=== PATIENT | female | born 1955 | race Two or more races ===

== ENCOUNTER 2023-12-04 12:04 | Emergency (ER) | payer OTHER ==
[~2023-12-04] VITALS: Ht 162.6 cm; Wt 65.3 kg
[2023-12-04] MEDS ORDERED: MEMANTINE HCL10 MG PO (12:25)
[2023-12-04] MEDS ORDERED: MAXIMUM D3325 MCG PO (12:26)
[2023-12-04] MEDS ORDERED: OMEPRAZOLE20 MG PO (12:26)
[2023-12-04] MEDS ORDERED: ROSUVASTATIN CA20 MG PO (12:26)
[2023-12-04] MEDS ORDERED: CETIRIZINE HCL10 MG PO (12:26)
[2023-12-04] MEDS ORDERED: LEVOTHYROXINE50 MCG PO (12:26)
[2023-12-04] MEDS ORDERED: ALENDRONATE SOD70 MG PO (12:26)
[2023-12-04] MEDS ORDERED: KETOROLAC TROMETHAMINE 30 MG VIAL IV ONE (12:30)
[2023-12-04 13:02] LABS: HEMATOCRIT 37.9 % (36.0-45.00); HEMOGLOBIN 12.7 g/dL (12.0-15.00); MEAN CELL VOLUME 86.3 fL (80.00-100.00); MEAN CORPUSCULAR HGB CONC 33.6 g/dl (32.0-36.0); PLATELET COUNT 265 K/uL (150-450); RED BLOOD COUNT 4.39 M/uL (4.00-6.00); RED CELL DISTRIBUTION WIDTH 14.3 % (11.5-14.5)
[2023-12-04 13:12] LABS: ERYTHROCYTE SEDIMENTATION RATE 24 mm/hr
[2023-12-04 13:38] LABS: CALCIUM 9.5 mg/dL (8.5-10.1); CREATININE SERUM 0.69 mg/dL (0.55-1.02); GFR 84.11; POTASSIUM 3.85 mEq/L (3.5-5.1)
[2023-12-04] MEDS ORDERED: CEFTRIAXONE SODIUM 1,000 MG VIAL IM ONE (16:30)
== END 2023-12-04 16:16 | disposition home or self-care (01) ==
LOC: ER 12:04
PROVIDERS: Emergency Medicine
DX: M25.569 Pain in unspecified knee (principal); I10 Essential (primary) hypertension
CPT/HCPCS: 36415; 73560; 96365; 96372; 99283; J0696; J1885